=== PATIENT | female | born 1975 | race Caucasian/White ===

== ENCOUNTER → 2017-05-25 15:19 | Outpatient (REF) | payer OTHER, SELFPAY ==
[2017-05-27 07:15] LABS: Hep A Ab, IgM Negative (Negative); Hepatitis B Core Antibody IgM Negative (Negative); Hepatitis B Surface Antigen Negative (Negative)
[2017-05-27 08:14] LABS: HIV Screen 4th Generation wRfx Non Reactive (Non Reactive); Hepatitis C Antibody <0.1 s/co ratio (0.0-0.9)
[2017-05-27 08:15] LABS: HSV 2 IgG, Type Spec <0.91 index (0.00-0.90)
[2017-05-27 17:26] LABS: Rapid Plasma Reagin Ab Titer Non Reactive (NonRea<1:1)
[2017-05-28 17:59] LABS: Neisseria gonorrhoeae, NAA Negative (Negative)
== END ==
LOC: LAB 15:19
PROVIDERS: Visit Provider Physician Assistant
DX: Z11.3 Encounter for screening for infections with a predominantly sexual mode of transmission (principal); Z11.4 Encounter for screening for human immunodeficiency virus [HIV]
CPT/HCPCS: 80074; 86592; 86695; 86703; 86790; 87491; 87591; G0432

== ENCOUNTER → 2018-12-22 10:51 | Outpatient (CLI) | payer OTHER, SELFPAY ==
--- NOTE | 2018-12-22 10:54 | MM_ITS ---
PROCEDURE: MM DIG SCREENING MAMM BI W/CAD CLINICAL INDICATION: SCREENING There is no personal or family history of breast cancer COMPARISON: No exams were available for comparison, this is a baseline exam TECHNIQUE: Standard CC and MLO images were obtained. R2 CAD reviewed. FINDINGS: Diffuse somewhat heterogenic fibroglandular densities are seen in both breasts most prominent in the upper outer quadrants. There is a somewhat focal area of increased fibroglandular densities upper outer quadrant right breast with somewhat irregular borders and questionable architectural distortion. This likely represents a summation shadow of dense fibroglandular elements but the area is highlighted by CAD on the MLO view. Recommend the patient return for spot-compression MLO and CC views and ultrasound for additional evaluation. There are no suspicious microcalcifications. IMPRESSION: Dense and heterogenic parenchymal pattern with asymmetric increased fibroglandular elements upper-outer quadrant right breast BI-RAD Category: 0 Need Additional Imaging Evaluation FOLLOW-UP: IMM Immediate Follow-up Recommended (A letter has been sent to the patient regarding results of the study.) Dictated by: Dr. Edmund Mathis MD 12/22/2018 11:[address] Edmund Mathis MD in [place] 12/22/2018 11:53
== END ==
PROVIDERS: PCP Emergency Medicine; Visit Provider Nurse Practitioner Obstetrics & Gynecology
DX: Z12.31 Encounter for screening mammogram for malignant neoplasm of breast (principal)
CPT/HCPCS: 77067

== ENCOUNTER → 2018-12-25 16:41 | Outpatient (CLI) | payer OTHER, SELFPAY ==
[2018-12-25 16:58] LABS: Basophils % 0.3 % (0.1-2.0); Eosinophils # 0.1 K/mm3 (0.0-0.4); Eosinophils % 1.2 % (0.1-12.0); Hematocrit 42.2 % (37.0-47.0); Hemoglobin 13.8 g/dL (12.2-16.2); Lymphocytes # 3.1 K/mm3 (0.7-4.5); Lymphocytes % 30.3 % (10-50); Mean Corpuscular HGB Conc 32.8 g/dL (31.8-35.4); Mean Corpuscular Hemoglobin 32.2 pg (27.0-31.2); Mean Corpuscular Volume 98.3 fl (81-99); Mean Platelet Volume 7.5 fl (7.4-10.4); Monocytes # 0.7 K/mm3 (0.1-1.0); Monocytes % 6.4 % (1.7-9.3); Neutrophils # 6.3 K/mm3 (1.8-7.8); Neutrophils % 61.8 % (37.0-80.0); Platelet Count 377 K/mm3 (142-424); Red Cell Distribution Width 12.9 % (11.5-17.5); White Blood Count 10.2 K/mm3 (4.8-10.8)
[2018-12-25 17:25] LABS: Alanine Aminotransferase 10 U/L (12-78); Albumin Level 3.8 gm/dL (3.4-5.0); Albumin/Globulin Ratio 1.1 (1.1-1.8); Alkaline Phosphatase 64 U/L (46-116); Anion Gap 14.1 mEq/L (5-15); Aspartate Amino Transferase 17 U/L (15-37); Bilirubin,Total 0.4 mg/dL (0.2-1.0); Blood Urea Nitrogen 8 mg/dL (7-18); Calcium 9.4 mg/dL (8.5-10.1); Carbon Dioxide 28 mmol/L (21.0-32.0); Chloride 101 mmol/L (98-107); Chol/HDL Ratio 3.9 (1-3.5); Cholesterol 193 mg/dL (140-200); Creatinine,Serum 0.88 mg/dL (0.55-1.02); Estimated Glomerular Filt Rate 70 ml/min (>60); Free T4 (Free Thyroxine) 0.71 ng/dl (0.76-1.46); GFR (African American) 85 ML/MIN (>60); Globulin 3.5 gm/dl (1.3-3.2); Glucose 110 mg/dL (74-106); HDL Cholesterol 49 mg/dL (29-89); LDL Cholesterol 118 mg/dL (0-130); Potassium 4.1 mmoL/L (3.5-5.1); Sodium 139 mmol/L (136-145); Thyroid Stimulating Hormone 1.14 uIU/ml (0.358-3.740); Total Protein,Serum 7.3 gm/dL (6.4-8.2); Triglycerides 132 mg/dL (30-200); VLDL Cholesterol 26 mg/dL (0-40)
[2018-12-27 10:49] LABS: Vitamin D 25 Hydroxy 32.6 ng/mL (30.0-100.0)
== END ==
PROVIDERS: Nurse Practitioner Family; Visit Provider Emergency Medicine
DX: R53.83 Other fatigue (principal)
CPT/HCPCS: 80053; 80061; 82652; 84439; 84443; 85025

== ENCOUNTER → 2019-01-02 13:48 | Outpatient (CLI) | payer OTHER, SELFPAY ==
--- NOTE | 2019-01-02 13:52 | US_ITS ---
PROCEDURE: MM DIG MAMM DX UNILAT RT CAD CLINICAL INDICATION: rt breast density Follow-up abnormal screening exam COMPARISON: MM DIG SCREENING MAMM BI W/CAD from 12/22/2018 US BREAST RT COMPLETE from 01/02/2019 TECHNIQUE: Problem solving views performed along with right breast ultrasound FINDINGS: Right mammogram: Asymmetry in the upper outer aspect of the right breast appears to compress out on the spot compression views. Less apparent on the mL view. There is some increased density noted in the 12 o'clock region of the right breast which may represent mild diffuse fibroglandular tissue. Right breast ultrasound: 4 mm cyst at 10 o'clock near the nipple. Prominent fibroglandular elements noted. No suspicious mass or large cyst evident IMPRESSION: Probably benign with asymmetric fibroglandular tissue suspected in the superior right breast. No malignant appearing mass evident. Any palpable nodule should be managed on a clinical basis. Recommend six-month mammographic and sonographic follow-up providing that there is no palpable abnormality BI-RAD Category: 3 Probably Benign Finding Short Term Follow-up FOLLOW-UP: 6M 6Month Follow-up (A letter has been sent to the patient regarding results of the study.) Dictated by: Fly Bateman MD 01/08/2019 12:59 Electronically signed by Fly Bateman MD in [place] 01/08/2019 12:59
== END ==
PROVIDERS: PCP Emergency Medicine; Visit Provider Nurse Practitioner Obstetrics & Gynecology
DX: R92.8 Other abnormal and inconclusive findings on diagnostic imaging of breast (principal)
CPT/HCPCS: 76641; 77065

== ENCOUNTER → 2019-01-26 09:49 | Outpatient (CLI) | payer OTHER, SELFPAY ==
[2019-01-26 10:32] LABS: Basophils # 0.1 K/mm3 (0-0.2); Basophils % 0.9 % (0.1-2.0); Eosinophils # 0.3 K/mm3 (0.0-0.4); Hemoglobin 13.6 g/dL (12.2-16.2); Lymphocytes # 2.8 K/mm3 (0.7-4.5); Lymphocytes % 41.8 % (10-50); Mean Corpuscular HGB Conc 32.3 g/dL (31.8-35.4); Mean Corpuscular Hemoglobin 32.3 pg (27.0-31.2); Mean Corpuscular Volume 100.1 fl (81-99); Mean Platelet Volume 7.8 fl (7.4-10.4); Monocytes # 0.5 K/mm3 (0.1-1.0); Monocytes % 7.4 % (1.7-9.3); Neutrophils # 3.1 K/mm3 (1.8-7.8); Platelet Count 328 K/mm3 (142-424); Red Blood Count 4.19 M/mm3 (4.20-5.40); Red Cell Distribution Width 12.6 % (11.5-17.5); White Blood Count 6.8 K/mm3 (4.8-10.8)
[2019-01-26 12:18] LABS: Anion Gap 11.5 mEq/L (5-15); Blood Urea Nitrogen 7 mg/dL (7-18); Calcium 8.7 mg/dL (8.5-10.1); Carbon Dioxide 28 mmol/L (21.0-32.0); Chloride 104 mmol/L (98-107); Creatinine,Serum 0.75 mg/dL (0.55-1.02); Estimated Glomerular Filt Rate 84 ml/min (>60); GFR (African American) 102 ML/MIN (>60); Glucose 65 mg/dL (74-106); HCG,Quantitative 2 mIU/mL; Potassium 3.5 mmoL/L (3.5-5.1); Sodium 140 mmol/L (136-145)
== END ==
PROVIDERS: Visit Provider Nurse Practitioner Obstetrics & Gynecology
DX: Z01.818 Encounter for other preprocedural examination (principal)
CPT/HCPCS: 36415; 80048; 84702; 85025

== ENCOUNTER 2021-03-09 13:06 | Emergency (ER) | payer BC, SELFPAY ==
[2021-03-09 14:40] VITALS: BP 140/98; PULSE 98; RESP 21; TEMP 37; O2SAT 99; BMI 19.1
--- NOTE | 2021-03-09 15:24 | HMH.EDUTC ---
[facility] [place] Clinical Impression: Bronchitis Sinusitis Qualifiers: Sinusitis location: unspecified location Chronicity: unspecified Qualified Code(s): J32.9 - Chronic sinusitis, unspecified Disposition: Home, Self-Care Condition on Discharge: Good Instructions: Sinusitis, DI for Sinusitis, DI for Acute Bronchitis Additional Instructions: ? Start antibiotic today. Be sure to complete entire prescription even if feeling better ? Monitor temp. Tylenol every 4 hours as needed and / or ibuprofen every 6 hours as needed ( As long as your primary care physician has told you that it ok to take both. For fever/aches/pains ER if no less than 101 despite Tylenol or Motrin ? Humidifier/vaporizer or hot steamy shower ? Inhaler every 4-6 hours as needed like we discussed. If unsure how to use it, ask pharmacist to demonstrate how. Should help open airways and improve cough, wheezing, and shortness of breath *Tessalon Perles will not cause drowsiness but use at bedtime to help stop cough so that you may get some rest. *Start steroid today. Helps with inflammation therefore, cough and wheezing. Follow directions on the package. Reviewed side effects. Patient reports taking them before. Follow up IMMEDIATELY for new or worsening of symptoms OR no noticeable improvement over the next 48-72 hours. 911 immediately for any life threatening symptoms such as chest pain or difficulty breathing Prescriptions: Benzonatate [Benzonatate 100mg cap] 100 mg PO TID PRN #15 cap PRN Reason: Cough Transmission Status: Pending to [facility] predniSONE [Prednisone 20mg Tab] 20 mg PO BID 5 Days #10 tab Transmission Status: Pending to [facility] Azithromycin [Z-Brian 250mg Tab] 250 mg PO DIRECTED #6 tab Transmission Status: Pending to [facility] Referrals: Sean Jaime MD [Primary Care Provider] - As needed Forms: Work/School Release Medical Decision Making - Jw Inquiry Pt receiving controlled substance: No Jw was queried for this patient: No Vital Signs: 03/09/21 14:40 Temperature 98.6 F Temperature Source Oral Pulse Rate [Right Brachial] 98 H Respiratory Rate 21 Blood Pressure [Right Arm] 140/98 H Blood Pressure Mean [Right Arm] 112 Blood Pressure Source [Right Arm] Automatic Cuff Blood Pressure Position [Right Arm] Sitting 02 Sat by Pulse Oximetry 99 Oxygen Delivery Method Room Air Orders (Tests/Meds): ORDERS Category Date Time Status Covid-19 Nasal PCR ([facility]) Routine Lab 03/09/21 14:47 Ordered [facility] [place] - General Stated complaint: sore thraot,cough,congestion Time Seen by Provider: 03/09/21 15:24 Mode of Arrival: Ambulatory Source of Information: Patient Limitations: No Limitations Description of Symptoms (Recalled from Triage Doc. by RN): PATIENT C/O PRODUCTIVE COUGH, CHILLS, AND CONGESTION HEENT Symptoms (Recalled from RN notes): No Resp Symptoms (Recalled from RN notes): Yes Skin Symptoms (Recalled from RN notes): No MS Symptoms (Recalled from RN notes): No Functional Status (Recalled from RN notes): WNL - History of Present Illness Provider Complaint: Patient states that she has been having sinus congestion and pressure along with sore throat, drainage in the back of her throat, cough and at times she will cough up some mucous, and feeling achy all over States that she was exposed to someone last week that tested positive for COVID - Related Data Home Medications Medication Instructions Recorded Confirmed Ibuprofen [Ibuprofen Ib] 200 mg PO DAILY 01/29/19 02/12/19 Previous Rx's Medication Instructions Recorded metronidazole 500 mg tablet 500 mg PO BID 5 Days #10 tab 02/12/19 Azithromycin [Z-Brian 250mg Tab] 250 mg PO DIRECTED #6 tab 03/09/21 Benzonatate [Benzonatate 100mg 100 mg PO TID PRN #15 cap 03/09/21 cap] predniSONE [Prednisone 20mg 20 mg PO BID 5 Days #10 tab 03/09/21 Tab] Allergies Allergy/AdvReac Type Severity Reaction
[2021-03-09 15:30] VITALS: BP 140/98; PULSE 98; RESP 21; TEMP 37; O2SAT 99
== END 2021-03-09 15:50 | disposition home or self-care (01) ==
PROVIDERS: Emergency Provider Nurse Practitioner; PCP Emergency Medicine
DX: J20.9 Acute bronchitis, unspecified (principal); J32.9 Chronic sinusitis, unspecified; F41.8 Other specified anxiety disorders; Z88.5 Allergy status to narcotic agent; Z20.822 Contact with and (suspected) exposure to COVID-19
CPT/HCPCS: 99202; C9803; G0463; U0003; U0005

== ENCOUNTER → 2021-03-21 17:40 | Outpatient (CLI) | payer BC, SELFPAY | PROVIDERS: PCP Emergency Medicine; Visit Provider Nurse Practitioner Family | DX: Z20.822 Contact with and (suspected) exposure to COVID-19 (principal) | CPT/HCPCS: C9803; U0003; U0005 ==

== ENCOUNTER 2021-04-12 18:48 | Emergency (ER) | payer BC, SELFPAY ==
[2021-04-12 19:53] VITALS: BP 0/0; PULSE 0; RESP 0; TEMP -17.7; TEMP 0
== END 2021-04-12 19:56 | disposition left against medical advice (07) ==
LOC: UTC 18:51
PROVIDERS: Emergency Provider Nurse Practitioner Family; PCP Emergency Medicine
DX: Z53.21 Procedure and treatment not carried out due to patient leaving prior to being seen by health care provider (principal)

== ENCOUNTER → 2021-04-13 16:59 | Outpatient (CLI) | payer BC, SELFPAY | PROVIDERS: Visit Provider Nurse Practitioner | DX: Z20.822 Contact with and (suspected) exposure to COVID-19 (principal) | CPT/HCPCS: C9803; U0003; U0005 ==

== ENCOUNTER 2021-04-19 15:24 | Emergency (ER) | payer BC, SELFPAY ==
[2021-04-19 16:43] VITALS: BP 144/98; PULSE 96; RESP 18; TEMP 36.6; O2SAT 100; BMI 19.5
--- NOTE | 2021-04-19 17:08 | HMH.EDUTC ---
[facility] [place] Clinical Impression: Exposure to COVID-19 virus Disposition: Home, Self-Care Condition on Discharge: Good Instructions: DI for COVID-19 (Suspected or Confirmed ), Preventing the Spread of Coronavirus Discharge Instructions Additional Instructions: Drink plenty of fluids. Take tylenol or ibuprofen for pain or fever. Take the medications as directed. Follow up with your regular doctor. GO TO THE ER FOR ANY WORSENING SYMPTOMS Quarantine until you know the results of your covid-19 test. Notify your school or workplace of your results and follow their instructions regarding return to work/school. Prescriptions: Benzonatate [Benzonatate 100mg cap] 100 mg PO TIDP PRN #30 cap PRN Reason: Cough Transmission Status: Received by [facility] Azithromycin [Z-Brian 250mg Tab*] 250 mg PO UD DOSE PK #6 tab Transmission Status: Received by [facility] Referrals: Sean Jaime MD [Primary Care Provider] - Forms: Work/School Release Time of Disposition: 17:44 Medical Decision Making - Medical Records Medical records reviewed: No: I reviewed the patient's medical records. - Jw Inquiry Pt receiving controlled substance: No Vital Signs: 04/19/21 16:43 04/19/21 17:46 Temperature 98 F 98 F Temperature Source Oral Pulse Rate 96 H Pulse Rate [Left] 96 H Respiratory Rate 18 18 Blood Pressure 144/98 H Blood Pressure [Right Arm] 144/98 H Blood Pressure Mean [Right Arm] 113 02 Sat by Pulse Oximetry 100 - Lab Data Lab results reviewed: Yes: I reviewed the patient's lab results. [facility] [place] - General Stated complaint: covid test Time Seen by Provider: 04/19/21 17:08 Mode of Arrival: Ambulatory Source of Information: Patient Limitations: No Limitations Description of Symptoms (Recalled from Triage Doc. by RN): pt wants a covid test. pt c/o cough and a STAFFORD. sister has covid. HEENT Symptoms (Recalled from RN notes): Yes (STAFFORD) Resp Symptoms (Recalled from RN notes): Yes (cough) Skin Symptoms (Recalled from RN notes): No MS Symptoms (Recalled from RN notes): No Functional Status (Recalled from RN notes): wnl - History of Present Illness Provider Complaint: She has had a nonproductive cough for the past 5 days. Her sister tested positive for covid-19 yesterday with similar symptoms. She has not been vaccinated. She rides to work with her sister everyday. She has also been having hot flashes, that she attributes to menopause, for the past 2 years. She is requesting something for treatment of these. - Related Data Home Medications Medication Instructions Recorded Confirmed Ibuprofen [Ibuprofen Ib] 200 mg PO DAILY 01/29/19 02/12/19 Previous Rx's Medication Instructions Recorded metronidazole 500 mg tablet 500 mg PO BID 5 Days #10 tab 02/12/19 Azithromycin [Z-Brian 250mg Tab] 250 mg PO DIRECTED #6 tab 03/09/21 Benzonatate [Benzonatate 100mg 100 mg PO TID PRN #15 cap 03/09/21 cap] predniSONE [Prednisone 20mg 20 mg PO BID 5 Days #10 tab 03/09/21 Tab] Azithromycin [Z-Brian 250mg Tab*] 250 mg PO UD DOSE PK #6 tab 04/19/21 Benzonatate [Benzonatate 100mg 100 mg PO TIDP PRN #30 cap 04/19/21 cap] Allergies Allergy/AdvReac Type Severity Reaction Status Date / Time codeine [CODEINE] Allergy Intermediate I-HIVES Verified 02/12/19 13:58 oxycodone Allergy Mild Verified 02/12/19 13:58 - Worker's Comp Is this a Worker's Comp case?: No [facility] History - Hepatitis A Screen Drug use history?: No High risk sexual behaviors?: No History of sexually transmitted infection?: No Currently employed?: No Childcare worker?: No Do you have indoor plumbing?: Yes Do you have electricity?: Yes Attestation statement:: This patient has been screened for Hepatitis A risk factors. I have reviewed the patient's past medical history: Yes Medical History: Reports:: Anxiety, Cancer, Depression, Migraine Denies:: Diabetes Mellitus Type 1, Diabete
[2021-04-19 17:46] VITALS: BP 144/98; PULSE 96; RESP 18; TEMP 36.6
== END 2021-04-19 17:48 | disposition home or self-care (01) ==
PROVIDERS: Emergency Provider Nurse Practitioner Family; PCP Emergency Medicine
DX: Z20.822 Contact with and (suspected) exposure to COVID-19 (principal); F41.8 Other specified anxiety disorders; R05.8 Other specified cough
CPT/HCPCS: 99202; C9803; G0463; U0003; U0005

== ENCOUNTER 2021-10-09 15:51 | Emergency (ER) | payer BC, SELFPAY ==
[2021-10-09 16:00] VITALS: BP 161/103; PULSE 82; RESP 19; TEMP 36.6; O2SAT 97; BMI 22.1
--- NOTE | 2021-10-09 16:11 | HMH.EDUTC ---
[facility] [place] Clinical Impression: Exposure to COVID-19 virus Disposition: Home, Self-Care Condition on Discharge: Good Instructions: DI for COVID-19 (Suspected or Confirmed ), Preventing the Spread of Coronavirus Discharge Instructions Additional Instructions: *Monitor Temp, Over the counter Motrin or Tylenol as directed/as needed Tylenol every 4 hours and Motrin every 6 hours (as long as your family doctor has told you that you can take it) for fever or pain. and straight to ER if unable to lower temp less than 101.0 after medication given *Warm salt water gargles may help to soothe the throat *Throat Lozenges *Warm fluids like tea with honey may help to soothe the throat *Sleep elevated *Humidifier/Vaporizer Make sure to make appointment and follow up with your Family Doctor for annual exam and recheck your blood pressure Follow up IMMEDIATELY for new or worsening symptoms or no Noticeable improvement over the next 48-72 hours. 911 for difficulty breathing or swallowing You were tested for today for COVID19 your test result should be back in the next 24-48 hours, you may check your results on the [facility] My Health Portal Make sure to take your Vitamins Vit. C Vit D and Zinc if you can take them Referrals: Sean Jaime MD [Primary Care Provider] - As needed Forms: Work/School Release Time of Disposition: 16:18 Medical Decision Making - Jw Inquiry Pt receiving controlled substance: No Jw was queried for this patient: No Vital Signs: 10/09/21 16:00 Temperature 97.9 F Temperature Source Oral Pulse Rate [Left Brachial] 82 Respiratory Rate 19 Blood Pressure [Left Arm] 161/103 H Blood Pressure Mean [Left Arm] 122 Blood Pressure Source [Left Arm] Automatic Cuff Blood Pressure Position [Left Arm] Sitting 02 Sat by Pulse Oximetry 97 Oxygen Delivery Method Room Air Orders (Tests/Meds): ORDERS Category Date Time Status Covid-19 Nasal PCR ([facility]) Routine Lab 10/09/21 16:00 Received [facility] [place] HPI - General Stated complaint: covid test exposed Time Seen by Provider: 10/09/21 16:11 Mode of Arrival: Ambulatory Source of Information: Patient Limitations: No Limitations Description of Symptoms (Recalled from Triage Doc. by RN): PATIENT C/O HEADACHE AND SORE THROAT. STATES SHE WAS EXPOSED TO COVID LAST WEEK HEENT Symptoms (Recalled from RN notes): Yes Resp Symptoms (Recalled from RN notes): No Skin Symptoms (Recalled from RN notes): No MS Symptoms (Recalled from RN notes): No Functional Status (Recalled from RN notes): WNL - History of Present Illness Provider Complaint: Patient states that she was exposed to someone with COVID last week States that she recently started having headache and scratchy throat and she was worried due to the exposure so she wanted to come in and get tested - Related Data Allergies Allergy/AdvReac Type Severity Reaction Status Date / Time codeine [CODEINE] Allergy Intermediate I-HIVES Verified 02/12/19 13:58 oxycodone Allergy Mild Verified 02/12/19 13:58 - Worker's Comp Is this a Worker's Comp case?: No [facility] History - Hepatitis A Screen Attestation statement:: This patient has been screened for Hepatitis A risk factors. I have reviewed the patient's past medical history: Yes Medical History: Reports:: Anxiety, Cancer, Depression, Migraine Denies:: Diabetes Mellitus Type 1, Diabetes Mellitus Type 2, Internal Pacemaker, MRSA, Seizures Other Medical History: Denies: Blood Transfusion Reaction Other Surgeries: Yes: No Previous Surgery. No: Pacemaker Amputation: No Fractures: Yes Comment: cone biopsy, Jan - Social History Smoking Status: Current every day smoker Tobacco Type: cigarettes # Packs/Day (cigarettes): 1 Alcohol Intake: never Alcohol Intake Frequency:: a few times a month Substance Use Type: marijuana Occupational Status: unemployed Housing: apartment Household Members: family - Psychiatric History Pschychiatric History:: Report
[2021-10-09 16:20] VITALS: BP 146/93; PULSE 82; RESP 19; TEMP 36.6; O2SAT 97
== END 2021-10-09 16:26 | disposition home or self-care (01) ==
PROVIDERS: Emergency Provider Nurse Practitioner; PCP Emergency Medicine
DX: Z03.89 Encounter for observation for other suspected diseases and conditions ruled out (principal); Z20.822 Contact with and (suspected) exposure to COVID-19; J02.9 Acute pharyngitis, unspecified; G43.909 Migraine, unspecified, not intractable, without status migrainosus; F32.A Depression, unspecified; F41.9 Anxiety disorder, unspecified; F17.210 Nicotine dependence, cigarettes, uncomplicated; Z88.5 Allergy status to narcotic agent; Z88.6 Allergy status to analgesic agent; Z85.9 Personal history of malignant neoplasm, unspecified; Z82.49 Family history of ischemic heart disease and other diseases of the circulatory system; Z83.3 Family history of diabetes mellitus
CPT/HCPCS: 99212; C9803; G0463; U0003; U0005

== ENCOUNTER 2022-08-25 12:26 | Emergency (ER) | payer BC, SELFPAY ==
[2022-08-25 12:47] VITALS: BP 141/104; PULSE 90; RESP 18; TEMP 36.7; O2SAT 99; BMI 23.9
--- NOTE | 2022-08-25 12:47 | EXP.UTC ---
Discharge Plan Disposition Patient Disposition: Home Health Service Condition: Good Prescriptions Prescriptions: New lisinopril 20 mg tablet 20 mg PO DAILY Qty: 30 0RF amoxicillin [amoxicillin] 500 mg tablet 500 mg PO TID 10 Days Qty: 30 0RF Referrals Follow up/Referrals: Provider,Referral, [Primary Care Provider] - See instructions Activity Restrictions/Add. Instructions Additional Instructions/Restrictions: Drink plenty of fluids. Take tylenol or ibuprofen for pain or fever. Take the medications as directed. Increase your lisinopril (blood pressure medication) to lisinopril 20 mg daily. Stop taking your old dose. Make sure you follow up with your primary care physician regarding this medication. Follow up with your regular doctor. GO TO THE ER FOR ANY WORSENING SYMPTOMS Clinical Impressions Clinical Impression: Pharyngitis, Hypertension Stand Alone Forms Stand Alone Forms: Work/School Release Instructions Patient Instructions: Essential Hypertension, DI for Pharyngitis/Tonsillopharyngitis -- Adult, Lisinopril Discharge ED Provider: Simeon Pickard [facility] General Stated complaint: Knot in throat, high BP Time Seen by Provider: 08/25/22 12:47 History of Present Illness Provider Complaint: She c/o sore throat for the past 2 days. She also states that her blood pressure has been running high. She has been on lisinopril 10 mg daily for the past 1 year. She denies any chest pain and shortness of breath. Related Data Previous Rx's Medication Instructions Recorded amoxicillin 500 mg tablet 500 mg PO TID 10 days #30 tabs 08/25/22 lisinopril 20 mg tablet 20 mg PO DAILY #30 tabs 08/25/22 Allergies Allergy/AdvReac Type Severity Reaction Status Date / Time codeine [CODEINE] Allergy Intermediate I-HIVES Verified 08/25/22 12:51 oxycodone Allergy Mild Verified 08/25/22 12:51 [facility] Disclaimer: The information contained in this section may have been updated after the patient was seen, as this information can be updated by other users. Social History Smoking Status: Current every day smoker tobacco type: cigarettes packs per day: 1 alcohol intake: never substance use type: marijuana current occupational status: unemployed Travel in the last 8 weeks: None household members: family housing: apartment current occupational exposures/hazards: No caffeine: No ROS Obtained: Yes All systems reviewed & no additional complaints except as documented Constitutional Constitutional: Reports chills and Reports fever(s) Eyes Eyes: Denies eye discharge ENT Ears, Nose, Mouth, and Throat: Reports as per HPI Cardiovascular Cardiovascular: Denies chest pain Respiratory Respiratory: Denies chest congestion and Reports cough Gastrointestinal Gastrointestingal: Reports nausea; Denies abdominal pain, constipation, cramping, diarrhea or vomiting Musculoskeletal Musculoskeletal: Denies arthralgias Integumentary/Breasts Skin/Breast: Denies rash Neurologic Neurologic: Denies paresthesias Physical Exam General General appearance: alert and in no apparent distress Eye Eye exam: Present normal appearance, PERRL and EOMI ENT ENT exam: Present mucous membranes moist and normal external ear exam Expanded ENT Exam External ear exam: Present normal external inspection TM/Canal exam: Bilateral TM: erythema and bulging Nose exam: Absent sinus tenderness Nasal speculum exam: Bilateral: normal Mouth exam: Present normal external inspection; Absent drooling Teeth exam: Present normal inspection Throat exam: Present tonsillar erythema and tonsillomegaly Neck Neck exam: Present normal inspection, full ROM and trachea midline; Absent tenderness, lymphadenopathy or thyromegaly Chest Chest inspection: Present normal inspection and symmetric chest wall rise; Absent tenderness or rash Respiratory Respiratory exam: Present normal lung sounds
[2022-08-25 13:28] VITALS: BP 141/104; PULSE 90; RESP 18; TEMP 36.7
== END 2022-08-25 13:28 | disposition home health service (06) ==
PROVIDERS: Emergency Provider Nurse Practitioner Family
DX: J02.9 Acute pharyngitis, unspecified (principal); I10 Essential (primary) hypertension; F17.210 Nicotine dependence, cigarettes, uncomplicated
CPT/HCPCS: 99212; 99214; G0463

== ENCOUNTER 2023-02-25 17:41 | Emergency (ER) | payer BC, SELFPAY ==
[2023-02-25 18:18] LABS: Apearance,Urine Clear (Clear); Color,Urine Yellow (Yellow)
[2023-02-25 18:19] LABS: Bilirubin,Urine Negative (Negative); Blood, Urine Negative (Negative); Glucose,Urine (UA) Negative (Negative); Ketones,Urine Negative (Negative); Protein,Urine Negative (Negative); UTC Leukocyte Esterase,Urine Negative (Negative); UTC Nitrate,Urine Negative (Negative); Urobilinogen,Urine 1 EU/dl (0.2)
[2023-02-25 18:20] VITALS: BP 160/90; PULSE 102; RESP 22; TEMP 36.6; O2SAT 98; BMI 23.5
--- NOTE | 2023-02-25 18:21 | EXP.UTC ---
Discharge Plan Disposition Patient Disposition: Home, Self-Care Prescriptions Prescriptions: New ondansetron 4 mg tablet,disintegrating 4 mg PO Q6H PRN (Reason: nausea and vomiting) 5 Days Qty: 20 0RF amoxicillin-pot clavulanate 875-125 mg tablet 1 tab PO BID 10 Days Qty: 20 0RF No Action losartan 100 mg tablet 100 mg PO DAILY Referrals Follow up/Referrals: Leno Aquino MD [Staff Physician] - See instructions (1-2 weeks if you are not improving ) Provider,MD Francisco [Primary Care Provider] - See instructions Activity Restrictions/Add. Instructions Additional Instructions/Restrictions: Your emergency evaluation demonstrated very mild acute diverticulitis that is uncomplicated. Even prescribed nausea medicine and an antibiotic please return to emergency department with any significant worsening pain high fevers inability to tolerate fluids by mouth or any other concerns. Otherwise if you are not improving you may follow-up with Dr. Aquino our surgeon in 1 to 2 weeks or with your primary care doctor as needed. Clinical Impressions Clinical Impression: Diverticulitis Instructions Patient Instructions: DI for Acute Abdominal Pain Discharge ED Provider: Simeon Pickard [facility] General Chief complaint: Abdominal Pain Stated complaint: Left side abd pain Time Seen by Provider: 02/25/23 18:21 Related Data Home Medications Medication Instructions Recorded Confirmed losartan 100 mg tablet 100 mg PO DAILY Hypertension 02/25/23 02/25/23 Previous Rx's Medication Instructions Recorded amoxicillin 875 mg-potassium 1 tab PO BID 10 days #20 tabs 02/25/23 clavulanate 125 mg tablet ondansetron 4 mg disintegrating 4 mg PO Q6H PRN nausea and 02/25/23 tablet vomiting 5 days #20 tabs Allergies Allergy/AdvReac Type Severity Reaction Status Date / Time oxycodone Allergy Mild Verified 08/25/22 12:51 [facility] Disclaimer: The information contained in this section may have been updated after the patient was seen, as this information can be updated by other users. Medical History (Updated 02/25/23 @ 21:04 by Emperatriz Alexander MD) Hypertension Social History Smoking Status: Current every day smoker tobacco type: cigarettes packs per day: 1 alcohol intake: never substance use type: marijuana current occupational status: unemployed Travel in the last 8 weeks: None household members: family housing: apartment current occupational exposures/hazards: No caffeine: No ROS Obtained: Yes All systems reviewed & no additional complaints except as documented Constitutional Constitutional: Denies chills, Denies fever(s) and Reports poor appetite ENT Ears, Nose, Mouth, and Throat: Denies dizziness and Denies sore throat Cardiovascular Cardiovascular: Denies dyspnea Respiratory Respiratory: Denies chest congestion, Denies cough and Denies dyspnea Gastrointestinal Gastrointestingal: Reports as per HPI and abdominal pain Genitourinary Female Genitourinary: Denies difficulty voiding, Denies dysuria, Denies hematuria, Denies urinary frequency, Denies urinary incontinence, Denies urinary hesitancy and Denies urinary urgency Musculoskeletal Musculoskeletal: Denies arthralgias Integumentary/Breasts Skin/Breast: Denies rash Neurologic Neurologic: Denies dizziness Physical Exam General General appearance: alert and in no apparent distress Head Head exam: atraumatic and normocephalic Eye Eye exam: Present normal appearance, PERRL and EOMI ENT ENT exam: Present normal exam, normal oropharynx, mucous membranes moist, TM's normal bilaterally and normal external ear exam Neck Neck exam: Present normal inspection, full ROM and trachea midline; Absent tenderness, meningismus or lymphadenopathy Chest Chest inspection: Present normal inspection and symmetric chest wall rise; Absent tenderness, rash or abscess Respiratory Respiratory exam: P
--- NOTE | 2023-02-25 19:10 | PC.NURSE ---
PATIENT SENT TO ER PER Ab BEVERLY APRN FOR FURTHER EVALUATION. PATIENT AMBULATED TO ER WITH [facility] STAFF ASSIST. FAMILY AT BEDSIDE
[2023-02-25 19:17] LABS: Chloride 104 mmol/L (98-107); Potassium 3.6 mmoL/L (3.5-5.1); Sodium 139 mmol/L (136-145)
[2023-02-25 19:19] VITALS: BP 154/93; PULSE 90; RESP 18; TEMP 36.8; O2SAT 98; BMI 24.7
[2023-02-25 19:20] LABS: Amylase 65 U/L (30-110); Anion Gap 10.6 mEq/L (5-15); Blood Urea Nitrogen 10 mg/dl (7-17); Carbon Dioxide 28 mmol/L (22.0-30.0); Creatinine Clearance Estimated 91 mL/min (50-200); Estimated Glomerular Filt Rate 77 ml/min (>60); GFR (African American) 93 ML/MIN (>60); Lipase 28 U/L (23-300)
[2023-02-25 19:21] LABS: Calcium 8.7 mg/dl (8.4-10.2); Glucose 112 mg/dl (74-100)
--- NOTE | 2023-02-25 19:26 | CT_ITS ---
PROCEDURE INFORMATION: Exam: CT Abdomen And Pelvis With Contrast Exam date and time: 02/25/2023 7:45 PM Age: 48 years old Clinical indication: Abdominal pain; Additional info: Llq abd pain TECHNIQUE: Imaging protocol: Computed tomography of the abdomen and pelvis with contrast. Radiation optimization: All CT scans at this facility use at least one of these dose optimization techniques: automated exposure control; mA and/or kV adjustment per patient size (includes targeted exams where dose is matched to clinical indication); or iterative reconstruction. Contrast material: ISOVUE; Contrast volume: 75 ml; Contrast route: IV; REPORTING DATA: Count of CT and Cardiac NM exams in prior 12 months: This patient has received 0 known CTs and 0 known cardiac nuclear medicine studies in the 12 months prior to the current study. COMPARISON: CR CXR2V XR chest 2V 09/16/2017 7:30 PM FINDINGS: Lungs: Lung bases are clear. Liver: Occasional subcentimeter low-density lesions are noted in the right lobe of the liver including the dome on image 18 and posterior right lobe on image 29 and in the medial segment left lobe of liver on image 33 too small to characterize but likely cysts. Liver otherwise unremarkable. Gallbladder and bile ducts: Normal. No calcified stones. No ductal dilation. Pancreas: Normal. No ductal dilation. Spleen: Normal. No splenomegaly. Adrenal glands: Normal. No mass. Kidneys and ureters: Normal. No hydronephrosis. Stomach and bowel: Multiple diverticula of the sigmoid and distal descending colon. Associated [id number] wall thickening of the proximal to mid sigmoid identified with adjacent fat stranding with associated inflamed appearing diverticulum along the posterior proximal portion of the sigmoid. Colon otherwise unremarkable. GI tract structures otherwise unremarkable with no evident wall thickening allowing for incomplete distention. Appendix: Appendix is normal. No evidence of appendicitis. Intraperitoneal space: Unremarkable. No free air. No significant fluid collection. Vasculature: Atherosclerotic changes of the aorta and iliacs noted. No evidence of aneurysm. Lymph nodes: Unremarkable. No enlarged lymph nodes. Urinary bladder: Unremarkable as visualized. Reproductive: Unremarkable as visualized. Bones/joints: Unremarkable. No acute fracture. Soft tissues: Unremarkable. IMPRESSION: 1. Thickened sigmoid colon with adjacent fat stranding associated with at least 1 inflamed diverticulum posteriorly in the proximal sigmoid suggesting diverticulitis. 2. Additional nonemergent findings as above.
--- NOTE | 2023-02-25 19:28 | HMH.EDGENADL ---
Discharge Plan Disposition Patient Disposition: Home, Self-Care Prescriptions Prescriptions: New ondansetron 4 mg tablet,disintegrating 4 mg PO Q6H PRN (Reason: nausea and vomiting) 5 Days Qty: 20 0RF amoxicillin-pot clavulanate 875-125 mg tablet 1 tab PO BID 10 Days Qty: 20 0RF No Action losartan 100 mg tablet 100 mg PO DAILY Referrals Follow up/Referrals: Leno Aquino MD [Staff Physician] - See instructions (1-2 weeks if you are not improving ) Provider,MD Francisco [Primary Care Provider] - See instructions Activity Restrictions/Add. Instructions Additional Instructions/Restrictions: Your emergency evaluation demonstrated very mild acute diverticulitis that is uncomplicated. Even prescribed nausea medicine and an antibiotic please return to emergency department with any significant worsening pain high fevers inability to tolerate fluids by mouth or any other concerns. Otherwise if you are not improving you may follow-up with Dr. Aquino our surgeon in 1 to 2 weeks or with your primary care doctor as needed. Clinical Impressions Clinical Impression: Diverticulitis Instructions Patient Instructions: DI for Acute Abdominal Pain Discharge ED Provider: Simeon Pickard Adult HPI General Chief complaint: Abdominal Pain Stated complaint: Left side abd pain Time Seen by Provider: 02/25/23 18:21 Mode of Arrival: Ambulatory Limitations: No Limitations Description of Symptoms (Recalled from ER Triage Doc. by RN): Patient states that she has had left lower abd pain since 02/24 am. Patient states that she had a normal BM this am and that she has not had a period for about 4 years. History of Present Illness HPI narrative: Patient is a 48-year-old female who presents today with intermittent left lower quadrant abdominal pain that is been persisting throughout the day. Denies any urinary symptoms including frequency urgency dysuria or blood in her urine. Denies any flank pain. Denies any history of diverticulitis she has not had any blood in her stool or any diarrhea. States that the pain at times is been very severe. Was seen in the urgent treatment clinic and sent over the emergency department. Related Data Home Medications Medication Instructions Recorded Confirmed losartan 100 mg tablet 100 mg PO DAILY Hypertension 02/25/23 02/25/23 Previous Rx's Medication Instructions Recorded amoxicillin 875 mg-potassium 1 tab PO BID 10 days #20 tabs 02/25/23 clavulanate 125 mg tablet ondansetron 4 mg disintegrating 4 mg PO Q6H PRN nausea and 02/25/23 tablet vomiting 5 days #20 tabs Allergies Allergy/AdvReac Type Severity Reaction Status Date / Time oxycodone Allergy Mild Verified 08/25/22 12:51 [facility] Disclaimer: The information contained in this section may have been updated after the patient was seen, as this information can be updated by other users. Medical History (Updated 02/25/23 @ 21:04 by Emperatriz Alexander MD) Hypertension Social History Smoking Status: Current every day smoker tobacco type: cigarettes packs per day: 1 alcohol intake: never substance use type: marijuana current occupational status: unemployed Travel in the last 8 weeks: None household members: family housing: apartment current occupational exposures/hazards: No caffeine: No ROS Obtained: Yes All systems reviewed & no additional complaints except as documented Physical Exam General General appearance: alert Respiratory Respiratory exam: Present normal lung sounds bilaterally Cardiovascular Cardiovascular exam: Present regular rate; Absent tachycardia Abdominal Exam Abdominal exam: Present soft and tenderness (Left lower quadrant tenderness to palpation no rebound or guarding no CVA tenderness bilaterally) Neurological Exam Neurological exam: Present alert and oriented X3 Medical Decision Making Jw Inquiry Pt receiving c
[2023-02-25 19:36] LABS: Basophils # 0.1 K/mm3 (0-0.2); Basophils % 0.4 % (0.1-2.0); Eosinophils # 0.2 K/mm3 (0.0-0.4); Eosinophils % 1.4 % (0.1-12.0); Hematocrit 38.7 % (37.0-47.0); Hemoglobin 13.8 g/dL (12.2-16.2); Lymphocytes # 2.1 K/mm3 (0.7-4.5); Lymphocytes % 15.7 % (10-50); Mean Corpuscular HGB Conc 35.7 g/dL (31.8-35.4); Mean Corpuscular Hemoglobin 33.8 pg (27.0-31.2); Mean Corpuscular Volume 94.6 fl (81-99); Mean Platelet Volume 7.8 fl (7.4-10.4); Monocytes # 0.7 K/mm3 (0.1-1.0); Monocytes % 4.8 % (1.7-9.3); Neutrophils # 10.6 K/mm3 (1.8-7.8); Neutrophils % 77.8 % (37.0-80.0); Platelet Count 300 K/mm3 (142-424); Red Blood Count 4.09 M/mm3 (4.20-5.40); White Blood Count 13.6 K/mm3 (4.8-10.8)
[2023-02-25 20:32] VITALS: BP 136/96; PULSE 86; RESP 18; O2SAT 99
[2023-02-25 20:50] VITALS: BP 140/91; PULSE 94; O2SAT 100
[2023-02-25 21:06] VITALS: BP 160/90; PULSE 90; RESP 18; TEMP 36.7; O2SAT 100
== END 2023-02-25 21:08 | disposition home or self-care (01) ==
LOC: UTC 17:45 → ER 19:15
PROVIDERS: Emergency Provider Nurse Practitioner Family
DX: K57.32 Diverticulitis of large intestine without perforation or abscess without bleeding (principal); R10.32 Left lower quadrant pain; F17.210 Nicotine dependence, cigarettes, uncomplicated; I10 Essential (primary) hypertension
CPT/HCPCS: 74177; 80048; 81003; 82150; 83690; 85025; 87086; 96361; 96372; 96374; 99285; Q9967

== ENCOUNTER 2023-05-27 11:22 | Emergency (ER) | payer BC, SELFPAY ==
[2023-05-27 11:52] LABS: Microscopic, Urine URINE MICROSCOPIC (MICROSCOPIC)
[2023-05-27 11:53] VITALS: BP 161/95; PULSE 81; RESP 16; TEMP 36.6; O2SAT 100; BMI 25.1
[2023-05-27 11:57] LABS: Chloride 107 mmol/L (98-107); Potassium 3.6 mmoL/L (3.5-5.1); Sodium 139 mmol/L (136-145)
[2023-05-27 11:59] LABS: Alanine Aminotransferase 17 U/L (12-78); Aspartate Amino Transferase 28 U/L (14-36); Blood Urea Nitrogen 7 mg/dl (7-17); Creatinine Clearance Estimated 88 mL/min (50-200); Estimated Glomerular Filt Rate 77 ml/min (>60); GFR (African American) 93 ML/MIN (>60)
[2023-05-27 12:00] VITALS: BP 157/102; PULSE 89; O2SAT 97
[2023-05-27 12:00] LABS: Albumin Level 4.3 g/dl (3.5-5.0); Albumin/Globulin Ratio 1.3 (1.1-1.8); Alkaline Phosphatase 80 U/L (38-126); Anion Gap 4.6 mEq/L (5-15); Basophils % 0.6 % (0.1-2.0); Bilirubin,Total 0.6 mg/dl (0.2-1.3); Calcium 9.2 mg/dl (8.4-10.2); Carbon Dioxide 31 mmol/L (22.0-30.0); Eosinophils # 0.1 K/mm3 (0.0-0.4); Eosinophils % 1.9 % (0.1-12.0); Globulin 3.2 g/dL (1.3-3.2); Glucose 96 mg/dl (74-100); Hematocrit 44.4 % (37.0-47.0); Hemoglobin 14.5 g/dL (12.2-16.2); Lymphocytes # 2.7 K/mm3 (0.7-4.5); Lymphocytes % 44.6 % (10-50); Mean Corpuscular HGB Conc 32.6 g/dL (31.8-35.4); Mean Corpuscular Hemoglobin 32.2 pg (27.0-31.2); Mean Corpuscular Volume 98.8 fl (81-99); Monocytes # 0.4 K/mm3 (0.1-1.0); Monocytes % 7.3 % (1.7-9.3); Neutrophils # 2.7 K/mm3 (1.8-7.8); Neutrophils % 45.6 % (37.0-80.0); Platelet Count 314 K/mm3 (142-424); Red Blood Count 4.49 M/mm3 (4.20-5.40); Red Cell Distribution Width 12.9 % (11.5-17.5); Total Protein,Serum 7.5 g/dl (6.3-8.2)
--- NOTE | 2023-05-27 12:13 | PC.NURSE ---
Rounded on pt. No needs voiced at this time. Call light within reach.
--- NOTE | 2023-05-27 12:13 | CT_ITS ---
FINAL REPORT TECHNIQUE: After the administration of intravenous contrast, axial images were obtained through the abdomen and pelvis by computed tomography. This study was performed with technique to keep radiation doses as low as reasonably achievable, (ALARA). Individualized dose reduction techniques using automated exposure control or adjustment of the MA and/or KV according to the patient's size were employed. CLINICAL HISTORY: RUQ pain radiating to back, h/o cervical CA COMPARISON: 02/26/2023 FINDINGS: Abdomen: There are moderate changes of centrilobular emphysema. The liver is normal in size and attenuation. The gallbladder is present. The spleen is unremarkable. The adrenals are normal. The pancreas is unremarkable. The kidneys enhance appropriately. The aorta is normal in caliber. There is no free fluid or adenopathy. There is a large amount of stool throughout the colon. There are scattered sigmoid diverticula. Previously seen inflammatory reaction of the sigmoid colon has resolved. Pelvis: The appendix is not identified. Uterus is present. The urinary bladder is unremarkable. There is no free fluid or adenopathy. IMPRESSION: No acute intra-abdominal process. Reviewed, Interpreted and Dictated by Stuart Stiles MD Transcribed by Stacey Johnson Authenticated and [facility]
[2023-05-27 12:28] LABS: Lipase 38 U/L (23-300)
[2023-05-27] MEDS: IOPAMIDOL-370 (76%);100ML BOTTLE 75 ML IV (12:31)
[2023-05-27 12:34] LABS: Appearance,Urine CLEAR (Clear); Bilirubin,Urine Negative (Negative); Blood, Urine Negative (Negative); Color,Urine YELLOW (Yellow); Glucose,Urine (UA) Negative (Negative); Ketones,Urine Negative (Negative); Leukocyte Esterase,Urine Negative (Negative); Nitrate,Urine Negative (Negative); Protein,Urine Negative (Negative); Urobilinogen,Urine 0.2 EU/dl (0.2)
--- NOTE | 2023-05-27 12:35 | HMH.EDGENADL ---
Discharge Plan Disposition Patient Disposition: Home, Self-Care Condition: Good Prescriptions Prescriptions: New naproxen 500 mg tablet 500 mg PO BID PRN (Reason: pain) Qty: 20 0RF No Action losartan 100 mg tablet 100 mg PO DAILY ondansetron 4 mg tablet,disintegrating 4 mg PO Q6H PRN (Reason: nausea and vomiting) 5 Days Qty: 20 0RF amoxicillin-pot clavulanate 875-125 mg tablet 1 tab PO BID 10 Days Qty: 20 0RF Referrals Follow up/Referrals: Provider,Referral, [Primary Care Provider] - See instructions Activity Restrictions/Add. Instructions Additional Instructions/Restrictions: You were evaluated in the emergency department today. Please waste picker your prescription and take at home as needed for pain. Also take Tylenol every 4 hours as needed. Follow-up with your primary care provider over the next 2 to 3 days. Return to the emergency department for any new or worsening symptoms. Clinical Impressions Clinical Impression: Abdominal pain, RUQ Stand Alone Forms Stand Alone Forms: Work/School Release Instructions Patient Instructions: DI for Acute Abdominal Pain Discharge ED Provider: Erica Collier General Adult HPI General Chief complaint: Abdominal Pain Stated complaint: abd pain on R side through back Time Seen by Provider: 05/27/23 11:49 Mode of Arrival: Ambulatory Source of Information: Patient Limitations: No Limitations Description of Symptoms (Recalled from ER Triage Doc. by RN): pt c/o RLQ/RUQ stabbing pain that is a 5/10 that has been ongoing x1wk. pt states she has been taking ibuprofen around the clock, last time was 0900 800mg. History of Present Illness HPI narrative: This patient is a 48-year-old female with a history of hypertension as well as cervical cancer presented to the emergency department for evaluation with concern for right upper quadrant abdominal pain radiating around to her back. She states that it has been going on for approximately 1 week and is constant. Nothing seems to make it better or worse. She has been taking ibuprofen [id number], as that is the only thing that provides her relief. She denies any fevers, chills, nausea, vomiting, changes bowel movements, chest pain, shortness of breath, or other concerns. No known traumatic injuries, and no changes with positions. Related Data Home Medications Medication Instructions Recorded Confirmed losartan 100 mg tablet 100 mg PO DAILY Hypertension 02/25/23 02/25/23 Previous Rx's Medication Instructions Recorded amoxicillin 875 mg-potassium 1 tab PO BID 10 days #20 tabs 02/25/23 clavulanate 125 mg tablet ondansetron 4 mg disintegrating 4 mg PO Q6H PRN nausea and 02/25/23 tablet vomiting 5 days #20 tabs naproxen 500 mg tablet 500 mg PO BID PRN pain #20 tabs 05/27/23 Allergies Allergy/AdvReac Type Severity Reaction Status Date / Time oxycodone Allergy Mild Verified 08/25/22 12:51 amoxicillin [From Augmentin] AdvReac Vomiting Verified 05/27/23 11:59 clavulanic acid AdvReac Vomiting Verified 05/27/23 11:59 [From Augmentin] [facility] Disclaimer: The information contained in this section may have been updated after the patient was seen, as this information can be updated by other users. Medical History Hypertension Social History Smoking Status: Current every day smoker tobacco type: cigarettes packs per day: 1 alcohol intake: never substance use type: marijuana current occupational status: unemployed Travel in the last 8 weeks: None household members: family housing: apartment current occupational exposures/hazards: No caffeine: No ROS Obtained: Yes All systems reviewed & no additional complaints except as documented Physical Exam General General appearance: alert and in no apparent distress Head Head exam: atraumatic and normocephalic Eye Eye exam: Present normal appearance, PERRL and EOMI ENT ENT exam: Present normal exam, normal oropharynx, mucous membranes moist and normal external ear exam Neck Neck exam: Present normal inspection, full ROM and trachea midline; Absent tenderness Chest Chest inspection: Present normal inspection and symmetric chest wall rise; Absent tenderness Respiratory Respiratory exam: Present normal lung sounds bilaterally; Absent respiratory distress, wheezes, stridor or accessory muscle use Cardiovascular Cardiovascular exam: Present regular rate and normal rhythm Abdominal Exam Abdominal exam: Present soft and tenderness (Right upper quadrant/epigastric); Absent distention, guarding, rebound or rigidity Extremities Exam Extremities exam: Present normal inspection, full ROM and normal capillary refill; Absent tenderness or edema Back Exam Back exam: Present normal inspection and full ROM; Absent tenderness Neurological Exam Neurological exam: Present alert, oriented X3, CN II-XII intact and normal gait; Absent motor sensory deficit Psychiatric Psychiatric exam: Present normal affect and normal mood Skin Skin exam: Present warm and dry Medical Decision Making Medical Records Medical records reviewed: Yes I reviewed the patient's medical records. Jw Inquiry Pt receiving controlled substance: No Vital Signs: 05/27/23 11:53 05/27/23 12:00 05/27/23 13:00 Temperature 97.9 F Temperature Source Oral Pulse Rate 89 79 Pulse Rate [Left] 81 Respiratory Rate 16 Blood Pressure 157/102 H 135/92 H Blood Pressure [Right Arm] 161/95 H Blood Pressure Mean Blood Pressure Mean [Right Arm] 117 Blood Pressure Source [Right Arm] Automatic Cuff Blood Pressure Position [Right Arm] Sitting 02 Sat by Pulse Oximetry 100 97 99 Oxygen Delivery Method Room Air Room Air Room Air 05/27/23 13:30 05/27/23 14:55 Temperature 97.9 F Temperature Source Pulse Rate 77 76 Pulse Rate [Left] Respiratory Rate 20 15 Blood Pressure 137/90 137/90 Blood Pressure [Right Arm] Blood Pressure Mean 105 Blood Pressure Mean [Right Arm] Blood Pressure Source [Right Arm] Blood Pressure Position [Right Arm] 02 Sat by Pulse Oximetry 99 Oxygen Delivery Method Lab Data Lab results reviewed: Yes I reviewed the patient's lab results. Lab Results 05/27/23 11:43: WBC 6.0, RBC 4.49, Hgb 14.5, Hct 44.4, MCV 98.8, MCH 32.2 H, MCHC 32.6, RDW 12.9, Plt Count 314, MPV 8.0, Neut % (Auto) 45.6, Lymph % (Auto) 44.6, [place] % (Auto) 7.3, Eos % (Auto) 1.9, Baso % (Auto) 0.6, Neut # (Auto) 2.7, Lymph # (Auto) 2.7, [place] # (Auto) 0.4, Eos # (Auto) 0.1, Baso # (Auto) 0.0, Sodium 139, Potassium 3.6, Chloride 107, Carbon Dioxide 31 H, Anion Gap 4.6 L, BUN 7, Creatinine 0.80, Estimated Creat Clear 88, Estimated GFR 77, Est GFR ( Amer) 93, Glucose 96, Calcium 9.2, Total Bilirubin 0.6, AST 28, ALT 17, Alkaline Phosphatase 80, Total Protein 7.5, Albumin 4.3, Globulin 3.2, Albumin/Globulin Ratio 1.3, Lipase 38, Urine Color Yellow, Urine Appearance Clear, Urine pH 6.0, Ur Specific [place] 1.010, Urine Protein Negative, Urine Glucose (UA) Negative, Urine Ketones Negative, Urine Blood Negative, Urine Nitrate Negative, Urine Bilirubin Negative, Urine Urobilinogen 0.2, Ur Leukocyte Esterase Negative, Urine RBC None, Urine WBC Occasional, Ur Squamous Epith Cells 3-5, Urine Bacteria 1+ 05/27/23 11:43 05/27/23 11:43 Orders (Tests/Meds): ED MEDICATIONS Discontinued Medications Generic Name Dose Route Start Last Admin Trade Name Freq PRN Reason Stop Dose Admin Acetaminophen 1,000 mg 05/27/23 12:12 05/27/23 12:39 Acetaminophen 500mg Tab PO 05/27/23 12:13 1,000 mg ONCE ONE Administration Lactated Ringer's 1,000 mls @ 999 mls/hr 05/27/23 12:12 05/27/23 12:36 Lactated Ringer's 1000 Ml Bag IV 05/27/23 13:12 999 mls/hr .Q1H1M ONE Administration Iopamidol 75 ml 05/27/23 12:30 05/27/23 12:31 Iopamidol-370 (76%);100ml Bottle IV 05/27/23 12:31 75 ml ONCE ONE Administration Ketorolac Tromethamine 15 mg 05/27/23 12:12 05/27/23 12:37 Ketorolac 30mg/Ml Vial IV 05/27/23 12:13 15 mg ONCE ONE Administration Sodium Chloride 10 ml 05/27/23 12:30 Sodium Chloride 0.9% 10ml Syr (Rad Only) IV 06/26/23 12:29 NEEDED PRN Maintain IV Site ORDERS Category Date Time Status CT abdomen pelvis w con Stat Cat Scan 05/27/23 12:13 Completed Complete Blood Count Auto Diff Stat Lab 05/27/23 11:43 Completed Comprehensive Metabolic Panel Stat Lab 05/27/23 11:43 Completed Lipase Stat Lab 05/27/23 11:43 Completed Urinalysis and Microscopic Stat Lab 05/27/23 11:43 Completed Medical Decision Narrative: In summary, this patient is a 48-year-old female presenting to the Emergency Department for evaluation of right upper quadrant pain. Differential diagnoses considered include but are not limited to cholecystitis, hepatitis, pancreatitis, gastroenteritis, colitis, pyonephritis, cystitis. Ruling out the most morbid conditions drove assessment. It should be noted patient's history includes cervical cancer which may or may not be at goal therapy. This complicates all aspects of care by increasing patient's risk for morbidity. On exam, the patient is well-appearing with reassuring vital signs of cardiac telemetry. She has right upper quadrant and epigastric tenderness, but otherwise abdominal exam is benign. Workup included CBC, CMP, lipase, urinalysis, and CT scan of the abdomen pelvis with IV contrast. She was given a bolus of IV fluids as well as IV Toradol and oral Tylenol for symptomatic improvement. I independently interpreted CT scan prior to the radiologist read and noted no obvious acutely concerning abnormalities at this time, such as colitis or other evidence of infection. Please see their read for final interpretation. Labs were obtained that demonstrated no acutely concerning abnormalities. On reassessment, patient had good improvement after administration of interventions above. Based on reassuring history, exam, and workup, I do not feel that further inpatient evaluation is indicated at this time. I instructed her to follow-up closely with her primary care provider. She was given prescription for naproxen, instructions for supportive management, and strict return precautions. She was discharged in stable condition after all questions were answered. Critical Care Critical Care Time Critical Care Time: No
[2023-05-27] MEDS: LACTATED RINGERS 1000ML 1,000 ML 999 ML IV (12:36)
[2023-05-27] MEDS: KETOROLAC 30MG/ML VIAL 15 MG IV (12:37)
[2023-05-27] MEDS: ACETAMINOPHEN 500MG TAB 1000 MG PO (12:39)
[2023-05-27 12:49] LABS: Bacteria,Urine 1+ /lpf; WBC,Urine Occasional #/hpf (0-3)
--- NOTE | 2023-05-27 12:49 | PC.NURSE ---
Rounded on pt. No needs voiced at this time. Call light within reach.
[2023-05-27 13:00] VITALS: BP 135/92; PULSE 79; O2SAT 99
--- NOTE | 2023-05-27 13:20 | PC.NURSE ---
Rounded on pt. No needs voiced at this time. Call light within reach.
[2023-05-27 13:30] VITALS: BP 137/90; PULSE 77; RESP 20; O2SAT 99
[2023-05-27 14:55] VITALS: BP 137/90; PULSE 76; RESP 15; TEMP 36.6
== END 2023-05-27 14:56 | disposition home or self-care (01) ==
PROVIDERS: Emergency Provider Emergency Medicine
DX: R10.11 Right upper quadrant pain (principal); R10.31 Right lower quadrant pain; M54.9 Dorsalgia, unspecified; Z85.41 Personal history of malignant neoplasm of cervix uteri; I10 Essential (primary) hypertension; F17.210 Nicotine dependence, cigarettes, uncomplicated
CPT/HCPCS: 74177; 80053; 81001; 83690; 85025; 96361; 96374; 99285; Q9967

== ENCOUNTER 2024-09-12 09:19 | Outpatient (CLI) | payer OTHER, SELFPAY ==
[2024-09-12 17:30] LABS: Basophils # 0.1 K/mm3 (0-0.2); Basophils % 0.8 % (0.1-2.0); Eosinophils # 0.1 Kmm3 (0.0-0.4); Eosinophils % 1.8 % (0.1-12.0); Hematocrit 40.4 % (37.0-47.0); Hemoglobin 13.6 g/dL (12.2-16.2); Immature Granulocytes # 0.02 10^3uL; Immature Granulocytes % 0.3 %; Lymphocytes # 3.2 K/mm3 (0.7-4.5); Lymphocytes % 44.4 % (10-50); Mean Corpuscular HGB Conc 33.7 g/dL (31.8-35.4); Mean Corpuscular Hemoglobin 31.6 pg (27.0-31.2); Mean Corpuscular Volume 93.7 fl (81-99); Mean Platelet Volume 10.1 fl (7.4-10.4); Monocytes # 0.5 K/mm3 (0.1-1.0); Monocytes % 7.2 % (1.7-9.3); Neutrophils # 3.3 K/mm3 (1.8-7.8); Neutrophils % 45.5 % (37.0-80.0); Nucleated Red Blood Cells # 0 10^3/uL; Nucleated Red Blood Cells % 0 %; Platelet Count 326 K/mm3 (142-424); Red Blood Count 4.31 M/mm3 (4.20-5.40); Red Cell Distribution Width 12.4 % (11.5-17.5); Red Cell Distribution Width-SD 43.2 fL; White Blood Count 7.3 K/mm3 (4.8-10.8)
[2024-09-12 17:43] LABS: Alanine Aminotransferase 14 U/L (12-78); Albumin Level 4.5 g/dl (3.5-5.0); Albumin/Globulin Ratio 1.6 (1.1-1.8); Alkaline Phosphatase 87 U/L (38-126); Anion Gap 9.2 mEq/L (5-15); Aspartate Amino Transferase 26 U/L (14-36); Bilirubin,Total 0.4 mg/dl (0.2-1.3); Blood Urea Nitrogen 9 mg/dl (7-17); Calcium 11.2 mg/dl (8.4-10.2); Carbon Dioxide 28 mmol/L (22.0-30.0); Chloride 106 mmol/L (98-107); Chol/HDL Ratio 4.8 (1-3.5); Cholesterol 248 mg/dl (140-200); Estimated Glomerular Filt Rate 77 ml/min (>60); GFR (African American) 93 ML/MIN (>60); Globulin 2.9 g/dL (1.3-3.2); Glucose 100 mg/dl (74-100); HDL Cholesterol 52 mg/dl (40-60); Potassium 4.2 mmoL/L (3.5-5.1); Sodium 139 mmol/L (136-145); Total Protein,Serum 7.4 g/dl (6.3-8.2); Triglycerides 246 mg/dl (30-150); VLDL Cholesterol 49 mg/dL (0-40)
[2024-09-12 17:54] LABS: Direct LDL Cholesterol 141.52 mg/dL (100-129)
[2024-09-12 18:14] LABS: Thyroid Stimulating Hormone 1.31 uIU/mL (0.465-4.68)
--- OUTSIDE RECORDS SUMMARY | 2024-09-13 09:35 | XMS_ITS | Clinical Summary ---
Author Organization [facility] Address [address] [place] [address] Care Team Providers Care Emergency Department Physician Name Role Phone Tonie Stout APRN Primary Care Provider [phone] Allergies No known active allergies Medications losartan (Cozaar) 100 MG tabletIndications :Essential (primary) hypertension Take 1 tablet (100 mg) by mouth 1 (one) time each day. 90 tablet 3 12/01/2022 Active Active Problems Problem Noted Date Diagnosed Date Postmenopausal symptoms 03/05/2022 Assessment & Plan (06/11/2022 5:11 PM EST): - discussed side effects of systemic HRT and provided reassurance. She does not have a history of stroke, heart attack, or DVT. Discussed that she does not have contraindications to estrogen - encouraged to take HTN medication daily - she will try estradiol patch and oral progesterone - RTC 3 month for symptoms eval Assessment & Plan (03/05/2022 2:58 PM EST): - we discussed different treatment options including systemic HRT, vaginal estrogen, or effexor. She would like to start systemic HRT. - estradiol patch and oral progesterone Rx sent - RTC 3 month for symptoms eval History of loop electrical excision procedure (L EEP) 03/05/2022 Assessment & Plan (06/11/2022 1:22 PM EST): - pap today - will discuss report when they result Assessment & Plan (03/05/2022 2:59 PM EST): - has not had follow up pap - declines pap and exam today - discussed need for pap given history of LEEP with no follow up pap - says that she will do pap at next apt - RTC 3 months Family History Medical History Relation Name Comments No Known Problems Father Diabetes Maternal Grandmother Hypertension Mother Hypertension, benign Mother Relation Name Status Comments Father Maternal Grandmother Mother Alive Social History Tobacco Use Types Packs/Day Years Used Date Smoking Tobacco: Every Day Cigarettes 1 35.4 Started: 1989 Passive Smoke Exposure: Current Smokeless Tobacco: Never Tobacco Cessation:Ready to Q uit: Not Asked; Counseling Given: Not Answered Alcohol Use Standard Drinks/Week Comments Never 0 (1 standard drink = 0.6 oz pur e alcohol) PHQ-2 Answer Date Recorded Patient Health Questionnaire-2 Score 0 12/01/2022 PHQ-2A Answer Date Recorded Patient Health Questionnaire-2 Score 0 12/01/2022 Comments No Sex and Gender Information Value Date Recorded Sex Assigned at Not on file Legal Sex Female 8:44 PM EDT Gender Identity Not on file Sexual Orientation Not on file Last Filed Vital Signs Vital Sign Reading Time Taken Comments Blood Pressure 136/86 12/01/2022 10:03 AM EDT Pulse 100 12/01/2022 9:58 AM EDT Temperature 36.7 C (98 F) 08/26/2022 2:52 PM EDT Respiratory Rate 18 08/26/2022 2:52 PM EDT Oxygen Saturation 98% 12/01/2022 9:58 AM EDT Inhaled Oxygen Concentration - - Weight 64 kg (141 lb 1.5 oz) 12/01/2022 9:58 AM EDT Height 160 cm (5' 3 ) 12/01/2022 9:58 AM EDT Body Mass Index 24.99 12/01/2022 9:58 AM EDT Plan of Treatment Health Maintenance Due Date Last Done Comments [facility]-HIV Screening 1976 [facility]-Hepatitis C Screening 1976 [facility]-Infant/Child/Adol SDOH Screenings 1976 [facility]- SDOH Screenings 01/24/1994 [facility]-Adult SDOH Screenings 01/24/1994 [facility]-DTaP,Tdap,and Td Vaccines (1 - Tdap) 01/24/1995 [facility]-Hepatitis B Vaccines (1 of 3 - 19+ 3-dose series) 01/24/1995 CT Colonography 01/24/2021 Colonoscopy 01/24/2021 FIT-DNA 01/24/2021 FIT 01/24/2021 FOBT 01/24/2021 Sigmoidoscopy 01/24/2021 [facility]-Colorectal Cancer Screening 01/24/2021 [facility]-Depression Screening 12/02/2023 12/01/2022 [facility]CN-POIXM-20 Vaccine ( season) 2023 [facility]-Influenza Vaccine (Season Ended) 2024 [facility]-Pap Smear 06/11/2025 06/11/2022, 02/02, 01/31/2019, Additional history exists [facility]-Zoster Vaccines (1 of 2) 01/24/2026 [facility]-Cervical Cancer Screening 06/12/2027 [facility]-HPV/Cotest 06/12/2027 06/11/2022 [facility]-Diabetes: Hemoglobin A1C Discontinued 02/12/2022 HPV Vaccines Aged Out No longer eligi ble based on patient's age to complete this topic [facility]-HIB Vaccines Aged Out No longer e ligible based on patient's age to complete this topic [facility]-Hepatitis A Vaccines Aged Out No longer eligible based on patient's age to complete this topic [facility]-IPV Vaccines Aged Out No longer e ligible based on patient's age to complete this topic [facility]-Pneumococcal Vaccine: Pediatrics (0 to 5 Years) and At-Risk Patients (6 to 49 Years) Aged Out No longer eligible based on patient's age to complete this topic [facility]-Rotavirus Vaccines Aged Out No lo nger eligible based on patient's age to complete this topic Procedures Procedure Name Priority Date/Time Associated Diagnosis Comments PAP TEST - CYTOLOGY Routine 06/11/2022 1 1:27 AM EST Smear, vaginal, as part of routine gynecological examination HEMOGLOBIN A1C Routine 02/12/2022 10:30 AM EST Encounter to establish care from Last 3 Months or Most Recently Relevant to Health Maintenance Results * Pap Test (06/11/2022 11:27 AM EST) Case Report Cytology Case: [id number] Authorizing Provider: Sasha Nichols MD Collected: 06/11/2022 1127 Ordering Location: Obstetrics & Gynecology Received: 06/14/2022 1032 First Screen: Aaron Torres Specimen: ThinPrep Pap Test, Liquid-Based Cervical/Vaginal, CERVICAL/VAGINAL 06/17/2022 2:12 PM EDT [facility] Interpretation NEGATIVE FOR INTRAEPITHELIAL LESION OR MALIGNANCY 06/17/2022 2:12 PM EDT [facility] at 1412 EDT Specimen Adequacy Satisfactory for evaluation; endocervical/vasquez sformation zone component present. Slide imaged by the ThinPrep Imaging system and selected 22 campo reviewed then full manual screening. 06/17/2022 2:12 PM EDT [facility] Cervical cytology is a screening test primarily for squamous cancers and precursors and has associated false negative and positive results. New technologies such as liquid based sampling may decrease but will not eliminate all false negative results. Regular screening and follow-up of unexplained clinical signs and symptoms are recommended to minimize false negative results. Please see the ASCCP website (www.asccp.org)fo r followup recommendations. If HPV testing was requested, correlation with the results is suggested (please call Microbiology at [phone] for results). 06/17/2022 2:12 PM EDT [facility] Menstrual Status Not Applicable 06/02 2:12 PM EDT [facility] History of Hysterectomy Not Applicable 06/17/2022 2:12 PM EDT [facility] Contraceptive History Not Applicable 06/17/2022 2:12 PM EDT [facility] Screening Type Previous or Suspected Abnormality 06/17/2022 2:12 PM EDT [facility] HPV Testing Requested? Request HPV Testing Regardless of Pap Test Findings 06/17/2022 2:12 PM EDT [facility] Previous Cancer History No 06/17/2022 2:12 PM EDT [facility] Previous or Suspected Abnormality Previous Abnormal Pap 06/17/2022 2:12 PM EDT [facility] Clinical Information Z01.419, Z12.72 - Smear, vaginal, as part of routine gynecological examination [ICD-10-CM] 06/17/2022 2:12 PM EDT [facility] Swab Vaginal and cervical cytologic material / Unknown Non-blood Collection / Unknown 06/11/2022 11:27 AM EST 06/14/2022 10:32 AM EDT us Sasha Nichols MD LAB CYTOLOGY ORDERABLES Final Result Performing Organization Address City/[facility] Co de Phone Number [facility] [address] [place] [address] * (ABNORMAL) Hemoglobin A1c (02/12/2022 10:30 AM EST) Hemoglobin A1c 5.8(H) <5.7 % 02/12/2022 1:46 PM EST [facility] Blood Venous blood specimen / Unknown Venipuncture / Unknown 02/12/2022 10:30 AM EST 02/12/2022 10:44 AM EST Narrative [facility] - 02/12/2022 1:46 PM EST HA1C Interpretive Data: Diagnosis of Diabetes: Diabetic > or = 6.5% Pre-diabetic 5.7 to 6.4% Non-diabetic < or = 5.6% Glycemic Targets for Type I and Type II Diabetics: Non- Adults <7.0% Adults <6.0% Children and Adolescents <7.5% Source: [place] [employer]. Standards of medical care in diabetes,2017. Diabetes Care.2017:40 (suppl 1):S1-S135. HbA1c assay performed by an ion-exchange chromatography method that is certified traceable to the DCCT. us Tonie Stout APRN LAB BLOOD ORDERABLES Final Result Performing Organization Address City/[facility] Co de Phone Number [facility] [address] [place] [address] from Last 3 Months or Most Recently Relevant to Health Maintenance Insurance [employer] Care Teams Emergency Department Physician Relationship Specialty Start Date End Date Tonie Stout, SUGAR LABORATORY ASSISTANT [place] [phone] PCP - General Family Medicine 02/12/22
--- OUTSIDE RECORDS SUMMARY | 2024-09-13 09:35 | XMS_ITS | Encounter Summary ---
Author Organization Healthcare Address [address] [place] [address] Care Team Providers Care Change Manager Name Role Phone Tonie Stout APRN Primary Care Provider [phone] Reason for Visit * Reason Comments Med Refill Encounter Details Date Type Department Care Team (Late st Contact Info) Description 11/27/2022 Refill [facility] [address] [place] [address] Yolanda Gonzales APRN [address] [place] [phone] Essential (primary) hypertension Social History Tobacco Use Types Packs/Day Years Used Date Smoking Tobacco: Every Day Cigarettes 1 35.4 Started: 1989 Passive Smoke Exposure: Current Smokeless Tobacco: Never Alcohol Use Standard Drinks/Week Comments Never 0 [...] on file Sexual Orientation Not on file documented as of this encounter Miscellaneous Notes * Telephone Encounter - Kelly Jeffers - 11/29/2022 1:30 PM EDT Attempted to call no answer, left VM for a call back documented in this encounter Plan of Treatment Not on file documented as of this encounter Visit Diagnoses Diagnosis Essential (primary) hypertension Unspecified essential hypertension documented in this encounter Additional Health Concerns Assessment Noted Time A fall risk assessment has been complete d for the patient 08/26/2022 2:54 PM EDT A Body Mass Index follow-up plan has been documented for the patient 09/01/2022 11:15 AM EDT documented as of this encounter Care Teams Change Manager Relationship Specialty Start Date End Date Tonie Stout, MACO [address] [place] [phone] PCP - General Family Medicine 02/12/22 documented as of this encounter
--- OUTSIDE RECORDS SUMMARY | 2024-09-13 09:35 | XMS_ITS | Encounter Summary ---
Author Organization [facility] Address [address] [id number] Care Team Providers Care Press Operator Assistant Name Role Phone Tonie Stout PRINTING MACHINIST Primary Care Provider [phone] Reason for Visit * Reason Comments Med Refill Encounter Details Date Type Department Care Team (Late st Contact Info) Description 03/18/2022 Refill [facility] [address] [place] [address] Tonie Stout, PRINTING MACHINIST [address] [place] [address] Essential (primary) hypertension Social History Tobacco Use Types Packs/Day Years Used Date Smoking Tobacco: Every Day Cigarettes 1 35.4 Started: 1989 Smokeless Tobacco: Never Alcohol Use Standard Drinks/Week Comments Never 0 (1 standard drink = 0.6 oz pur e alcohol) PHQ-2 Answer Date Recorded Patient Health Questionnaire-2 Score 0 03/03/2022 Comments No Sex and Gender Information Value Date Recorded Sex Assigned at Not on file Legal Sex Female 8:44 PM EDT Gender Identity Not on file Sexual Orientation Not on file COVID-19 Exposure Response Date Recorded In the last 10 days, have yo u been in contact with someone who was confirmed or suspected to have Coronavirus/COVID-19? No / Unsure 03/05/2022 1:30 PM EST documented as of this encounter Miscellaneous Notes * Telephone Encounter - Jasmine Newsome - 03/18/2022 3:49 PM EST Left message documented in this encounter Plan of Treatment Not on file documented as of this encounter Visit Diagnoses Diagnosis Essential (primary) hypertension Unspecified essential hypertension documented in this encounter Care Teams Press Operator Assistant Relationship Specialty Start Date End Date Tonie Stout APRN [address] [place] [phone] PCP - General Family Medicine 02/12/22 documented as of this encounter
[2024-09-13 20:09] LABS: Intact Parathyroid Hormone 43.7 pg/mL (7.5-53.5)
[2024-09-13 20:15] LABS: 25-OH Vitamin D, Total 24.5 ng/mL (30-100)
== END 2024-09-12 23:59 | disposition home or self-care (01) ==
PROVIDERS: PCP Nurse Practitioner Family; Visit Provider Nurse Practitioner Family
DX: I10 Essential (primary) hypertension (principal); E83.52 Hypercalcemia
CPT/HCPCS: 80053; 80061; 82306; 82330; 83970; 84443; 85025

== ENCOUNTER 2024-09-18 08:48 | Outpatient (CLI) | payer OTHER, SELFPAY ==
--- NOTE | 2024-09-18 08:45 | CA_ITS ---
FINAL REPORT CLINICAL HISTORY: HTN,SMOKER COMPARISON: None FINDINGS: Aorta velocity: 74 cm/sec Right kidney: 11.8 cm. No evidence of hydronephrosis or mass. Right intrarenal RI: 0.57-0.70 Right renal artery velocity: 170 cm/sec. Right RAR (Renal artery-Aortic Ratio): 2.3 Left Kidney: 11.5 cm. No evidence of hydronephrosis or mass. Left intrarenal RI: 0.54-0.62 Left renal artery velocity: 124 cm/sec. Left RAR (Renal Artery-Aortic Ratio): 1.7 IMPRESSION: Less than 50% stenosis of the renal arteries bilaterally. CT angiogram or postcontrast MR angiogram would be more sensitive for evaluation of possible renal artery stenosis. Reviewed, Interpreted and Dictated by Stuart Stiles MD Transcribed by Caity Hua Authenticated and [facility]
--- OUTSIDE RECORDS SUMMARY | 2024-09-18 08:52 | XMS_ITS | Data Portability ---
Author Organization [facility] ADMIN Address [address] [place] [id number] Assessment No assessment recorded. Plan of Treatment Reminders Order Date Submit Date Provider Last Modified By Organization Details Last Modified Time Details Appointments None recorded. Lab None recorded. Referral None recorded. Procedures None recorded. Surgeries None recorded. Imaging None recorded. Medication Orders ketoconazol e 2 % topical cream 2021 JOYCE Not available 12:38:00 lisinopril 10 mg tablet 2021 JOYCE Not available 12:37:56 Patient TargetsNo targets recorded. Patient Instructions Encounter Date Encounter Id Patient Instructions Last Modified By Organization Details Last Modified Time 01/07/2022 [id number] ringworm: care instructions Not available 01/07/2022 12:39:02 high blood pressure: care instructions Not available 01/07/2022 12:39:02 Patient provided with blood pressure medication today since blood pressue is staying consistently elevated and she is having symptoms of high blood pressure. Patient advised to come back in two weeks to have BP retested. Patient needs to follow up with pcp. Not available 01/07/2022 12:38:51 Reason for Referral None Reported. Medical Equipment None Reported. Allergies Allergen ID Allergen Name Allergen Category Reaction Reaction Severity Criticality Documentation Date Start Date Code Code System Note Provider Name and Address Organization Details Recorded Time 57812 codeine medicatio n abdominal pain moderate low 01/07/2022 2670 RxNorm LORA PIERCE friend [facility] & [place] 12:18:55 Medications Name Sig Start Date Stop Date Status Note LastModified by Organization Details LastModified Time lisinopril 10 mg tablet Take 1 tablet every day by oral route for 30 days. active Not Available Not Available No t Available ketoconazole 2 % topical cream APPLY TO THE AFFECTED AREA(S) BY TOPICAL ROUTE ONCE DAILY active Not Available Not Available No t Available Vitals Date Recorded Body height Body mass index (BMI) Body weight Body temperature Oxygen saturation Oxygen saturation in Arterial blood by Pulse oximetry Heart rate Systolic blood pressure Diastolic blood pressure Provider Name and Address Organization Details Last Updated DateTime 2 157.48 cm 25.3 kg/m2 67184.5 5 g 98.2 [degF] 99 % 99 % 84 /min 178 mm[Hg] 100 mm[Hg] [facility] [place] 2 12:21:28 Social History None recorded. Functional Status None recorded. Mental Status None recorded. Family History Relationship Description Onset Age of this Age Resolved Age Notes LastModified by Organization Details LastModified Time Father No current problems or disability asalsman Not available 01/07 12:19:07 Mother No current problems or disability asalsman Not available 01/07 12:19:07 Medical History Condition Response Coronary Artery Disease N Other N Gout N Kidney Stones N Blood Diseases N Hyperthyroidism N Breast Cancer N Blood Transfusion N Depression N Hypothyroidism N Lung Disease N COPD N Defects or Inherited Disease N Developmental or Behavioral Disorders N Breast Problem N Difficulty Swallowing N Anesthesia Complications N Meniere's disease N Anxiety Disorder N Muscle, Joint, or Bone Problems N Vision or Eye Problems N Arthritis N Polyps N Infertility N Cancer N Varicosities N Stroke N Endometriosis N Bladder or Kidney Problems N High Cholesterol N Liver Disease N Fibromyalgia N Headaches N Kidney Disease N Allergies/Hayfever N Heart Problems N Ear or Hearing Problems N Hospitalizations N Thyroid Problems N GI Problems N ADD/ADHD N Skin Problems N Eating Disorder N Anemia N Constipation N Mental Illness N Ovarian Cancer N Diabetes N Bedwetting N Seizures/Epilepsy N Tuberculosis N Eczema N Diverticulitis N Abuse/Domestic Violence N Asthma N Reflux/GERD N Jaundice N Hepatitis N Heart Disease N Pulmonary Embolism N Pre-Eclampsia N Hypertension N Chronic Ear Infections N Osteoporosis N Chicken Pox N Autism Spectrum Disorder (ASD) N Thrombophilias N Gynecological HistoryNo gynecological history recorded. Obstetrics History GPAL:G 0 P 0 0 0 0 Past Encounters Encounter ID Performer Location Encounter Start Date Encounter Closed Date Diagnosis/Indication Diagnosis SNOMED-CT Code Diagnosis ICD10 Code Diagnosis Note [id number] Margarita Hammonds DNP, HEALTHCARE ASSOCIATE-C, COLLECTIONS ASSOCIATE [facility] [address] [facility],[address] [place] [address] 01/07/2022 12:05:23 01/07/2022 12:41:07 Essential hypertension 76768555 I10 Tinea corporis 91984847 B35.4 Health Concerns Section Related Observation LastModified by Organization Detai ls LastModified Time None Recorded Concern Status LastModified by Organization Details LastModified Time None Recorded Advance Directives Directive None Recorded Payers Insurance Date Sequence Insurance Name Policy Number Policy Jasso Covered Member ID Jasso Member ID Guarantor Name 01/07/2022 1 [place] ([facility]) [id number] Lang Parsons [id number] Edyta Parsons Notes Date Note Type Note Provider Name and Address Organization Details Recorded Time 01/07/2022 text/html Per patient she has a rash under right arm. patient says she had one little spot a week ago. patient says that she has four or five spots. The rash is hagan and itches. Patient has had chicken pox. Patient says she has had shingles. Margarita Hammonds DNP, HEALTHCARE ASSOCIATE-C, COLLECTIONS ASSOCIATE [address] [facility], [place], [address], [facility] [place] & [place] 01/07/2022 12:41:16 OBGyn Episode No OBEpisode recorded.
--- OUTSIDE RECORDS SUMMARY | 2024-09-18 08:53 | XMS_ITS | Encounter Summary ---
Author Organization [facility] Address [address] [id number] Care Team Providers Care Curtain Worker Name Role Phone Tonie Stout APRN Primary Care Provider [phone] Reason for Visit * Reason Comments Med Refill Encounter Details Date Type Department Care Team (Late st Contact Info) Description 03/18/2022 Refill [facility] [address] [place] [address] Tonie Stout, SPRAY DRIER OPERATOR [address] [place] [address] Essential (primary) hypertension Social History Tobacco Use Types Packs/Day Years Used Date Smoking Tobacco: Every Day Cigarettes 1 35.5 Started: 1989 Smokeless Tobacco: Never Alcohol Use [...] hypertension documented in this encounter Care Teams Curtain Worker Relationship Specialty Start Date End Date Tonie Stout APRN [address] [place] [phone] PCP - General Family Medicine 02/12/22 documented as of this encounter
--- OUTSIDE RECORDS SUMMARY | 2024-09-18 08:53 | XMS_ITS | Encounter Summary ---
Author Organization Healthcare Address [address] [place] [address] Care Team Providers Care Product Management Analyst Name Role Phone Tonie Stout APRN Primary Care Provider [phone] Reason for Visit * Reason Comments Med Refill Encounter Details Date Type Department Care Team (Late st Contact Info) Description 11/27/2022 Refill [facility] [address] [place] [address] Yolanda Gonzales APRN [address] [place] [phone] Essential (primary) hypertension Social History Tobacco Use Types Packs/Day Years Used Date Smoking Tobacco: Every Day Cigarettes 1 35.5 Started: 1989 Passive Smoke Exposure: Current Smokeless [...] documented as of this encounter Care Teams Product Management Analyst Relationship Specialty Start Date End Date Tonie Stout, MACO [address] [place] [address] PCP - General Family Medicine 02/12/22 documented as of this encounter
--- OUTSIDE RECORDS SUMMARY | 2024-09-18 08:53 | XMS_ITS | Clinical Summary ---
Author Organization [facility] Address [address] [place] [address] Care Team Providers Care Legal Document Specialist Name Role Phone Tonie Stout APRN Primary Care Provider [phone] Allergies No known active allergies Medications losartan [...] Cancer Screening 01/24/2021 [facility]-Depression Screening 12/02/2023 12/01/2022 [id number] Vaccine ( season) 2023 [facility]-Influenza Vaccine (Season [...] 11:27 AM EST) Case Report Cytology Case: [id number] Authorizing Provider: Sasha Nichols MD Collected: 06/11/2022 1127 Ordering Location: Obstetrics & Gynecology Received: 06/14/2022 1032 First Screen: Aaron Torres Specimen: ThinPrep Pap Test, Liquid-Based Cervical/Vaginal, CERVICAL/VAGINAL 06/17/2022 2:12 PM EDT [facility] Interpretation NEGATIVE FOR INTRAEPITHELIAL LESION OR MALIGNANCY 06/17/2022 2:12 PM EDT [facility] at 1412 EDT Specimen Adequacy Satisfactory for evaluation; endocervical/vasquez sformation zone component present. Slide imaged by the ThinPrep Imaging system and selected 22 campo reviewed then full manual screening. 06/17/2022 2:12 PM EDT [facility] Cervical cytology is a screening test [...] results is suggested (please call Microbiology at [phone] for results). 06/17/2022 2:12 PM EDT [facility] Menstrual Status Not Applicable 06/02 2:12 PM EDT [facility] History of Hysterectomy Not Applicable 06/17/2022 2:12 PM EDT [facility] Contraceptive History Not Applicable 06/17/2022 2:12 PM EDT [facility] Screening Type Previous or Suspected Abnormality 06/17/2022 2:12 PM EDT [facility] HPV Testing Requested? Request HPV Testing Regardless of Pap Test Findings 06/17/2022 2:12 PM EDT [facility] Previous Cancer History No 06/17/2022 2:12 PM EDT [facility] Previous or Suspected Abnormality Previous Abnormal Pap 06/17/2022 2:12 PM EDT [facility] Clinical Information Z01.419, Z12.72 - Smear, vaginal, as part of routine gynecological examination [ICD-10-CM] 06/17/2022 2:12 PM EDT [facility] Swab Vaginal and cervical cytologic material / Unknown Non-blood Collection / Unknown 06/11/2022 11:27 AM EST 06/14/2022 10:32 AM EDT us Sasha Nichols MD LAB CYTOLOGY ORDERABLES Final Result Performing Organization Address City/[facility] Co de Phone Number [facility] [address] [place] [address] * (ABNORMAL) Hemoglobin A1c (02/12/2022 10:30 AM [...] Adults <6.0% Children and Adolescents <7.5% Source: [place] [employer]. Standards of medical care in diabetes,2017. Diabetes Care.2017:40 (suppl 1):S1-S135. HbA1c assay performed by an ion-exchange chromatography method that is certified traceable to the DCCT. us Tonie Stout APRN LAB BLOOD ORDERABLES Final Result Performing Organization Address City/[facility] Co de Phone Number [facility] [address] [place] [address] from Last 3 Months or Most Recently Relevant to Health Maintenance Insurance [employer] Care Teams Legal Document Specialist Relationship Specialty Start Date End Date Tonie Stout, BREAST [place] [phone] PCP - General Family Medicine 02/12/22
== END 2024-09-18 23:59 | disposition home or self-care (01) ==
LOC: RT 08:49
PROVIDERS: PCP Nurse Practitioner Family; Visit Provider Nurse Practitioner Family
DX: I10 Essential (primary) hypertension (principal); F17.200 Nicotine dependence, unspecified, uncomplicated
CPT/HCPCS: 93976

== ENCOUNTER 2024-11-19 16:32 | Outpatient (CLI) | payer OTHER, SELFPAY ==
--- OUTSIDE RECORDS SUMMARY | 2024-11-19 16:34 | XMS_ITS | Encounter Summary ---
Author Organization [facility] Address [address] [place] [address] Care Team Providers Care Silk Weaver Name Role Phone Tonie Stout APRN Primary Care Provider [phone] Reason for Visit * Reason Comments Med Refill Encounter Details Date Type Department Care Team (Late st Contact Info) Description 11/27/2022 Refill [facility] [address] [place] [address] Yolanda Gonzales APRN [address] [place] [phone] Essential (primary) hypertension Social History Tobacco Use Types Packs/Day Years Used Date Smoking Tobacco: Every Day Cigarettes 1 35.6 Started: 1989 Passive Smoke Exposure: Current Smokeless [...] documented as of this encounter Care Teams Silk Weaver Relationship Specialty Start Date End Date Tonie Stout, MACO [address] [place] [phone] PCP - General Family Medicine 02/12/22 documented as of this encounter
--- OUTSIDE RECORDS SUMMARY | 2024-11-19 16:34 | XMS_ITS | Clinical Summary ---
Author Organization [facility] Address [address] [place] [address] Care Team Providers Care Aerosol Supervisor Name Role Phone Tonie Stout APRN Primary Care Provider [phone] Allergies No known active allergies Medications losartan [...] [facility]-HIV Screening 1976 [facility]-Hepatitis C Screening 1976 [facility]-/Child/Adol SDOH Screenings 1976 [facility]- SDOH Screenings 01/24/1994 [facility]-Adult SDOH Screenings 01/24/1994 [facility]-DTaP,Tdap,and Td Vaccines (1 - Tdap) 01/24/1995 [facility]-Hepatitis B Vaccines (1 of 3 - 19+ 3-dose series) 01/24/1995 CT Colonography 01/24/2021 Colonoscopy 01/24/2021 FIT-DNA 01/24/2021 FIT 01/24/2021 FOBT 01/24/2021 Sigmoidoscopy 01/24/2021 [facility]-Colorectal Cancer Screening 01/24/2021 [facility]-Depression Screening 12/02/2023 12/01/2022 [id number] Vaccine ( season) 2023 [facility]-Influenza Vaccine (#1) 2024 [facility]-Pap Smear 06/11/2025 06/11/2022, 02/02, 01/31/2019, Additional history exists [facility]-Zoster Vaccines (1 of 2) 01/24/2026 [facility]-Cervical Cancer Screening 06/12/2027 [facility]-HPV/Cotest 06/12/2027 06/11/2022, 06/11/2022 [facility]-Diabetes: Hemoglobin A1C Discontinued 02/12/2022 HPV [...] 11:27 AM EST) Case Report Cytology Case: [id number] Authorizing Provider: Sasha Nichols MD Collected: 06/11/2022 1127 Ordering Location: Obstetrics & Gynecology Received: 06/14/2022 1032 First Screen: Aaron Torres Specimen: ThinPrep Pap Test, Liquid-Based Cervical/Vaginal, CERVICAL/VAGINAL 06/17/2022 2:12 PM EDT [facility] Interpretation NEGATIVE FOR INTRAEPITHELIAL LESION OR MALIGNANCY 06/17/2022 2:12 PM EDT [facility] at 1412 EDT Specimen Adequacy Satisfactory for evaluation; endocervical/vasquez sformation zone component present. Slide imaged by the ThinPrep Imaging system and selected 22 campo reviewed then full manual screening. 06/17/2022 2:12 PM EDT [facility] Cervical cytology is a screening test [...] results is suggested (please call Microbiology at [phone] for results). 06/17/2022 2:12 PM EDT [facility] Menstrual Status Not Applicable 06/02 2:12 PM EDT [facility] History of Hysterectomy Not Applicable 06/17/2022 2:12 PM EDT [facility] Contraceptive History Not Applicable 06/17/2022 2:12 PM EDT [facility] Screening Type Previous or Suspected Abnormality 06/17/2022 2:12 PM EDT [facility] HPV Testing Requested? Request HPV Testing Regardless of Pap Test Findings 06/17/2022 2:12 PM EDT [facility] Previous Cancer History No 06/17/2022 2:12 PM EDT [facility] Previous or Suspected Abnormality Previous Abnormal Pap 06/17/2022 2:12 PM EDT [facility] Clinical Information Z01.419, Z12.72 - Smear, vaginal, as part of routine gynecological examination [ICD-10-CM] 06/17/2022 2:12 PM EDT [facility] Swab Vaginal and cervical cytologic material / Unknown Non-blood Collection / Unknown 06/11/2022 11:27 AM EST 06/14/2022 10:32 AM EDT us Sasha Nichols MD LAB CYTOLOGY ORDERABLES Final Result Performing Organization Address City/[facility] [[email or web address]] Co de Phone Number [facility] [address] [place] [address] * (ABNORMAL) Hemoglobin A1c (02/12/2022 10:30 AM [...] Adults <6.0% Children and Adolescents <7.5% Source: [place] [employer]. Standards of medical care in diabetes,2017. Diabetes Care.2017:40 (suppl 1):S1-S135. HbA1c assay performed by an ion-exchange chromatography method that is certified traceable to the DCCT. us Tonie Stout APRN LAB BLOOD ORDERABLES Final Result Performing Organization Address City/[facility] de Phone Number [facility] [address] [place] [address] from Last 3 Months or Most Recently Relevant to Health Maintenance Insurance [employer] Care Teams Aerosol Supervisor Relationship Specialty Start Date End Date Tonie Stout, MACO [address] [place] [address] [place] [phone] PCP - General Family Medicine 02/12/22
--- OUTSIDE RECORDS SUMMARY | 2024-11-19 16:34 | XMS_ITS | Encounter Summary ---
Author Organization [facility] Address [address] [id number] Care Team Providers Care Grain Inspector Name Role Phone Tonie Stout WELFARE ADMINISTRATOR Primary Care Provider [phone] Reason for Visit * Reason Comments Med Refill Encounter Details Date Type Department Care Team (Late st Contact Info) Description 03/18/2022 Refill [facility] [address] [place] [address] Tonie Stout, WELFARE ADMINISTRATOR [address] [place] [address] Essential (primary) hypertension Social History Tobacco Use Types Packs/Day Years Used Date Smoking Tobacco: Every Day Cigarettes 1 35.6 Started: 1989 Smokeless Tobacco: Never Alcohol Use [...] hypertension documented in this encounter Care Teams Grain Inspector Relationship Specialty Start Date End Date Tonie Stout APRN [address] [place] [phone] PCP - General Family Medicine 02/12/22 documented as of this encounter
[2024-11-19 16:53] LABS: Coronavirus 19, PCR Not Detected (NotDetected); Influenza A, PCR Not Detected (NotDetected); Influenza B, PCR Not Detected (NotDetected)
== END 2024-11-19 23:59 | disposition home or self-care (01) ==
LOC: RT 16:32
PROVIDERS: PCP Nurse Practitioner Family; Visit Provider Nurse Practitioner Family
DX: R94.31 Abnormal electrocardiogram [ECG] [EKG] (principal); R00.0 Tachycardia, unspecified; R06.00 Dyspnea, unspecified; R68.89 Other general symptoms and signs
CPT/HCPCS: 87631; 93225; 93227